=== PATIENT | male | born 1945 | race Hispanic/Latino ===

== ENCOUNTER 2017-11-10 19:20 | Emergency (ER) | payer MEDICARE, OTHER ==
[2017-11-10 19:37] LABS: APPEARANCE,URINE Clear (CLEAR); BILIRUBIN,URINE Negative (NEGATIVE); COLOR,URINE Yellow (YELLOW); GLUCOSE, URINE (UA) Negative (NEGATIVE); KETONES,URINE Negative (NEGATIVE); LEUKOCYTE ESTERASE ,URINE Moderate (NEGATIVE); NITRATE,URINE Positive (NEGATIVE); OCCULT BLOOD,URINE Negative (NEGATIVE); PH,URINE 5.5 (5.0-8.0); PROTEIN,URINE Negative (NEGATIVE); UROBILINOGEN,URINE 0.2 mg/dL (0.2-1.0)
[2017-11-10 20:08] LABS: RBC,URINE 0-1 /HPF (0-1)
[2017-11-10 20:09] LABS: BASOPHILS % (AUTO) 0.8 % (0.0-5.0); EOSINOPHILS % (AUTO) 6.9 % (0.0-8.0); HEMATOCRIT 34.8 % (42-54); LYMPHOCYTES % (AUTO) 25.5 % (21.0-51.0); MEAN CORPUSCULAR HEMOGLOBIN 31.7 pg (27.0-33.0); MEAN CORPUSCULAR HGB CONC 34.7 g/dL (32.0-36.0); MEAN CORPUSCULAR VOLUME 91.3 fL (79-99); MONOCYTES % (AUTO) 7.7 % (3.0-13.0); NEUTROPHILS % (AUTO) 59.1 % (40.0-77.0); NUCLEATED RED BLOOD CELLS 0.1 % (0.0-0.19); PLATELET COUNT (AUTO) 307 K/uL (130-400); RED BLOOD CELL COUNT(AUTO) 3.81 MIL/uL (4.50-6.20); RED CELL DISTRIBUTION WIDTH 13.2 % (11.0-15.5); WHITE BLOOD COUNT (AUTO) 6.7 K/uL (4.8-10.8)
[2017-11-10 20:09] LABS: BACTERIA,URINE Rare /HPF (None Seen); SQUAMOUS EPITHELIAL CELL,UR Rare /LPF (0-2)
[2017-11-10 20:17] LABS: CREATININE 1.1 mg/dL (0.5-1.5); POTASSIUM 4.2 mmol/L (3.5-5.1)
[2017-11-10 20:28] LABS: ALBUMIN 3.3 g/dL (3.5-5.0); BILIRUBIN,TOTAL 0.1 mg/dL (0.2-1.0)
[2017-11-10] MEDS ORDERED: CEFTRIAXONE SODIUM 1 GM ONE (21:27)
[2017-11-10] MEDS ORDERED: INSULIN HUMULIN R 100 UNIT/ML 3ML ONE (22:11)
== END 2017-11-10 22:34 | disposition home or self-care (01) ==
LOC: EDH 19:20
DX: N39.0 Urinary tract infection, site not specified (principal); K59.00 Constipation, unspecified; E11.9 Type 2 diabetes mellitus without complications; I25.10 Atherosclerotic heart disease of native coronary artery without angina pectoris; Z88.6 Allergy status to analgesic agent; Z90.49 Acquired absence of other specified parts of digestive tract; Z98.890 Other specified postprocedural states
CPT/HCPCS: 36415; 80053; 81001; 82948; 85025; 96372; 96374; 99284; J0696; J1815

== ENCOUNTER 2018-08-06 07:14 | Day surgery (SDC) | payer OTHER ==
[~2018-08-06] VITALS: Ht 162.6 cm; Wt 66.4 kg
[~2018-08-06 07:14] MED LIST: DOCU-275 PO; FERR324T4 PO; INSU100C6 SQ; SODIUM CHLORIDE 0.9% 1000ML 1,000 ML IV ONE; [UNRECOGNIZED DRUG - OTHER]; diabetic med
[2018-08-06 07:30] VITALS: BP 138/66
[2018-08-06] MEDS ORDERED: FINA5TAB41 PO (08:21)
[2018-08-06] MEDS ORDERED: INSU200I4 SQ (08:21)
[2018-08-06] MEDS ORDERED: TAMS0.4C32 PO (08:21)
[2018-08-06] MEDS ORDERED: PRAV40TA3 PO (08:21)
[2018-08-06] MEDS ORDERED: CLOP75TA32 PO (08:21)
[2018-08-06] MEDS ORDERED: BACTSS PO (08:23)
[2018-08-06] MEDS ORDERED: PROPOFOL 10 MG/ML 20ML VIAL IV ONE ×2 (08:30→08:42)
[2018-08-06 09:00] VITALS: BP 83/54
[2018-08-06 09:05] VITALS: BP 120/67
[2018-08-06 09:10] VITALS: BP 121/79
[2018-08-06 09:15] VITALS: BP 123/75
== END 2018-08-06 09:33 | disposition home or self-care (01) ==
LOC: DAH 07:14 → ENDO 07:14
PROVIDERS: ATTEND Internal Medicine Gastroenterology
DX: D12.5 Benign neoplasm of sigmoid colon (principal); K63.5 Polyp of colon; D12.0 Benign neoplasm of cecum; K29.50 Unspecified chronic gastritis without bleeding; I25.10 Atherosclerotic heart disease of native coronary artery without angina pectoris; E11.9 Type 2 diabetes mellitus without complications; C78.7 Secondary malignant neoplasm of liver and intrahepatic bile duct; K31.89 Other diseases of stomach and duodenum; Z90.49 Acquired absence of other specified parts of digestive tract; Z98.890 Other specified postprocedural states; Z79.01 Long term (current) use of anticoagulants; Z79.4 Long term (current) use of insulin; Z79.899 Other long term (current) drug therapy; Z88.8 Allergy status to other drugs, medicaments and biological substances
CPT/HCPCS: 43239; 45380; 45385; 82948 ×2; 88305; 93005; A4606; J2704 ×2; J7030

== ENCOUNTER 2022-12-30 14:57 | Emergency (ER) | payer MEDICARE, OTHER ==
[~2022-12-30] VITALS: Ht 160 cm; Wt 69.9 kg
[~2022-12-30 14:57] MED LIST changes: +BACTSS PO; +DOCU-270 PO; -DOCU-275 PO; +FINA5TAB41 PO; +INSU200I4 SQ; +PRAV40TA3 PO; -SODIUM CHLORIDE 0.9% 1000ML 1,000 ML IV ONE; +TAMS0.4C32 PO; -[UNRECOGNIZED DRUG - OTHER]
[2022-12-30 15:46] LABS: BASOPHILS % (AUTO) 0.4 % (0.0-5.0); EOSINOPHILS % (AUTO) 3.1 % (0.0-8.0); HEMATOCRIT 35.2 % (42-54); LYMPHOCYTES % (AUTO) 7.3 % (21.0-51.0); MEAN CORPUSCULAR HEMOGLOBIN 30.5 pg (27.0-33.0); MEAN CORPUSCULAR HGB CONC 31.5 g/dL (32.0-36.0); MEAN CORPUSCULAR VOLUME 96.7 fL (79-99); MONOCYTES % (AUTO) 8.8 % (3.0-13.0); NEUTROPHILS % (AUTO) 79.8 % (40.0-77.0); PLATELET COUNT (AUTO) 165 K/uL (130-400); RED BLOOD CELL COUNT(AUTO) 3.64 MIL/uL (4.50-6.20); RED CELL DISTRIBUTION WIDTH 13.5 % (11.0-15.5); WHITE BLOOD COUNT (AUTO) 7.8 K/uL (4.8-10.8)
[2022-12-30 15:47] LABS: APPEARANCE,URINE CLOUDY (CLEAR); BILIRUBIN,URINE 0.5 mg/dL (NEGATIVE); COLOR,URINE DARK-YELLOW (YELLOW); GLUCOSE, URINE (UA) >=1000 mg/dL (NEGATIVE); KETONES,URINE NEGATIVE (NEGATIVE); LEUKOCYTE ESTERASE ,URINE 500 Leu/uL (NEGATIVE); NITRATE,URINE 1+ (NEGATIVE); PH,URINE 5.5 (5.0-8.0); PROTEIN,URINE 20 mg/dL (NEGATIVE)
[2022-12-30 15:54] LABS: BACTERIA,URINE MOD /HPF (None Seen); MUCUS,URINE RARE LPF (None Seen); RBC,URINE 26-50 /HPF (0-1); SQUAMOUS EPITHELIAL CELL,UR RARE /HPF (0-2); WBC,URINE >100 /HPF (0-1); YEAST,URINE BUDDING FEW /HPF (None Seen)
[2022-12-30 16:06] LABS: ALBUMIN 3.4 g/dL (3.5-5.0); CREATININE 1.3 mg/dL (0.5-1.5); POTASSIUM 3.6 mmol/L (3.5-5.1); TOTAL PROTEIN, SERUM 7.9 g/dL (6.0-8.3)
[2022-12-30] MEDS ORDERED: PHENAZOPYRIDINE HCL 200 MG TABLET PO STA (19:54)
[2022-12-30] MEDS ORDERED: LEVOFLOXACIN 750 MG/D5W 150ML BAG IVPB ONE (20:00)
[2022-12-30] MEDS ORDERED: LEVOFLOXACIN 750 MG/D5W 150 ML 150 ML ONE (20:45)
[2022-12-30] MEDS ORDERED: PHENAZOPYRIDINE HCL 200 MG TABLET ONE (20:46)
[2022-12-30] MEDS ORDERED: LEVO750T68 PO (22:03)
[2022-12-30 22:25] VITALS: BP 154/79
== END 2022-12-30 22:42 | disposition home or self-care (01) ==
LOC: EDH 14:57
DX: N39.0 Urinary tract infection, site not specified (principal); N41.9 Inflammatory disease of prostate, unspecified; E11.9 Type 2 diabetes mellitus without complications; E78.00 Pure hypercholesterolemia, unspecified; Z90.49 Acquired absence of other specified parts of digestive tract; Z88.6 Allergy status to analgesic agent; Z79.4 Long term (current) use of insulin
CPT/HCPCS: 99285; 96365; 96366; 80053; 85025; 87077; 87088; 87186; 83605; 81001; 36415; J1956

== ENCOUNTER 2024-01-29 15:01 | Emergency (ER) | payer MEDICARE ==
[~2024-01-29] VITALS: Ht 160 cm; Wt 67.1 kg
[~2024-01-29 15:01] MED LIST changes: +LEVO750T68 PO
[2024-01-29 15:28] LABS: BASOPHILS # (AUTO) 0.02 K/uL (0.00-0.20); BASOPHILS % (AUTO) 0.3 % (0.0-5.0); EOSINOPHILS # (AUTO) 0.16 K/uL (0.00-0.70); EOSINOPHILS % (AUTO) 2.4 % (0.0-8.0); HEMATOCRIT 29.7 % (42-54); IMMATURE GRANULOCYTE ABSOLUTE 0.04 K/uL (0-1); LYMPHOCYTES % (AUTO) 14.2 % (21.0-51.0); MEAN CORPUSCULAR HEMOGLOBIN 30.4 pg (27.0-33.0); MEAN CORPUSCULAR VOLUME 92.2 fL (79-99); MONOCYTES # (AUTO) 0.5 K/uL (0.1-1.0); NEUTROPHILS % (AUTO) 74.5 % (40.0-77.0); PLATELET COUNT (AUTO) 169 K/uL (130-400); RED BLOOD CELL COUNT(AUTO) 3.22 MIL/uL (4.50-6.20); RED CELL DISTRIBUTION WIDTH 14.9 % (11.0-15.5); WHITE BLOOD COUNT (AUTO) 6.7 K/uL (4.8-10.8)
[2024-01-29 15:54] LABS: ALBUMIN 3.1 g/dL (3.5-5.0); BILIRUBIN,TOTAL 0.4 mg/dL (0.2-1.0); CREATININE 1.1 mg/dL (0.5-1.3); TOTAL PROTEIN, SERUM 8.3 g/dL (6.0-8.3)
[2024-01-29] MEDS: ASPIRIN 81MG CHEW TAB PO ONE (16:22)
[2024-01-29] MEDS ORDERED: PRED50TA2 PO (18:45)
[2024-01-29 19:20] LABS: APPEARANCE,URINE CLEAR (CLEAR); BILIRUBIN,URINE NEGATIVE (NEGATIVE); COLOR,URINE LIGHT-YELLOW (YELLOW); GLUCOSE, URINE (UA) 200 mg/dL (NEGATIVE); KETONES,URINE NEGATIVE (NEGATIVE); LEUKOCYTE ESTERASE ,URINE 500 Leu/uL (NEGATIVE); MUCUS,URINE RARE LPF (None Seen); NITRATE,URINE NEGATIVE (NEGATIVE); OCCULT BLOOD,URINE NEGATIVE (NEGATIVE); PH,URINE 5.5 (5.0-8.0); PROTEIN,URINE NEGATIVE (NEGATIVE); UROBILINOGEN,URINE 0.2 mg/dL (0.2-1.0); WBC,URINE 26-50 /HPF (0-1)
[2024-01-29] MEDS: CEFTRIAXONE 2GM VIAL IVPB ONE (19:47)
[2024-01-29 20:04] VITALS: BP 142/74; PULSE 78; RESP 18; O2SAT 99
== END 2024-01-29 20:26 | disposition home or self-care (01) ==
LOC: EDH 15:01
DX: M79.10 Myalgia, unspecified site (principal); M79.18 Myalgia, other site; E11.9 Type 2 diabetes mellitus without complications; E78.00 Pure hypercholesterolemia, unspecified; Z79.4 Long term (current) use of insulin; Z88.6 Allergy status to analgesic agent; Z95.1 Presence of aortocoronary bypass graft
CPT/HCPCS: 99285; 96365; 71045; 84484 ×2; 80053; 85025; 87077; 87088; 87186; 81001; 36415; 93005; J0696